=== PATIENT | male | born 1950 ===

== ENCOUNTER → 2017-01-20 | Outpatient (CLI) | payer MEDICARE, OTHER | LOC: NWCC 10:44 | PROVIDERS: ATTEND Surgery | DX: L98.494 Non-pressure chronic ulcer of skin of other sites with necrosis of bone (principal); L59.8 Other specified disorders of the skin and subcutaneous tissue related to radiation; C44.02 Squamous cell carcinoma of skin of lip | CPT/HCPCS: 99183 ==

== ENCOUNTER → 2017-01-21 | Outpatient (CLI) | payer MEDICARE, OTHER | LOC: NWCC 10:45 | PROVIDERS: ATTEND Internal Medicine | DX: L98.494 Non-pressure chronic ulcer of skin of other sites with necrosis of bone (principal); L59.8 Other specified disorders of the skin and subcutaneous tissue related to radiation; C44.02 Squamous cell carcinoma of skin of lip | CPT/HCPCS: 99183 ==